=== PATIENT | female | born 1985 | race Caucasian/White ===

== ENCOUNTER → 2023-04-19 09:22 | Outpatient (REF) | payer OTHER, SELFPAY | LOC: HWRAD 09:22 | PROVIDERS: ATTENDING PHYSICIAN Obstetrics & Gynecology Gynecology; FAMILY PHYSICIAN Family Medicine | DX: R10.2 Pelvic and perineal pain (principal) | CPT/HCPCS: 76830; 76856 ==

== ENCOUNTER → 2023-05-17 09:00 | Outpatient (REF) | payer OTHER, SELFPAY | LOC: CLAB 09:00 | PROVIDERS: ATTENDING PHYSICIAN Obstetrics & Gynecology | DX: T83.39XD Other mechanical complication of intrauterine contraceptive device, subsequent encounter (principal) | CPT/HCPCS: 88300 ==

== ENCOUNTER → 2023-10-25 14:02 | Outpatient (REF) | payer OTHER, SELFPAY | LOC: HWEVLT 14:02 | PROVIDERS: ATTENDING PHYSICIAN Radiology Vascular & Interventional Radiology | DX: I83.892 Varicose veins of left lower extremity with other complications (principal) | CPT/HCPCS: 93971 ==